=== PATIENT | female | born 1965 ===

== ENCOUNTER 2022-04-23 06:32 | Day surgery (SDC) | payer OTHER ==
[~2022-04-23] VITALS: Ht 170.2 cm; Wt 83.9 kg
[~2022-04-23 06:32] MED LIST: CRESTOR10 MG PO; LEVO-T50 MCG PO; TENORMIN25 MG PO; TRIAMTERENE-HC1 EAC1 PO; ZYRTEC10 M3 PO
[2022-04-23] MEDS ORDERED: PERCOCET 5-3251 EACH PO (11:33)
[2022-04-23] MEDS ORDERED: LOVENOX40 MG/0.4 SUBCUTANEO (11:33)
== END 2022-04-23 15:00 | disposition home or self-care (01) ==
LOC: CIR.AMB 06:32
PROVIDERS: ATTEND Obstetrics & Gynecology Gynecology
DX: N83.292 Other ovarian cyst, left side (principal); N83.291 Other ovarian cyst, right side; Z20.822 Contact with and (suspected) exposure to COVID-19; Z88.6 Allergy status to analgesic agent

== ENCOUNTER 2023-03-22 06:19 | Day surgery (SDC) | payer OTHER ==
[~2023-03-22 06:19] MED LIST changes: +LOVENOX40 MG/0.4 SUBCUTANEO; +METFORMIN HCL500 M3 PO; +PERCOCET 5-3251 EACH PO
== END 2023-03-22 17:45 | disposition home or self-care (01) ==
LOC: CIR.AMB 06:19
PROVIDERS: ATTEND Surgery
DX: D05.11 Intraductal carcinoma in situ of right breast (principal); N60.92 Unspecified benign mammary dysplasia of left breast; Z90.13 Acquired absence of bilateral breasts and nipples; Z15.01 Genetic susceptibility to malignant neoplasm of breast; N60.91 Unspecified benign mammary dysplasia of right breast; N60.82 Other benign mammary dysplasias of left breast; N60.22 Fibroadenosis of left breast; R59.0 Localized enlarged lymph nodes; Z20.822 Contact with and (suspected) exposure to COVID-19; Z88.6 Allergy status to analgesic agent
CPT/HCPCS: 19303; 38525; 38792; 19340; A9541